=== PATIENT | female | born 1980 | race African-American/Black ===

== ENCOUNTER 2023-05-11 22:42 | Emergency (ER) | payer SELFPAY ==
[~2023-05-11] VITALS: Ht 170.2 cm; Wt 146.0 kg
[2023-05-11 22:50] VITALS: TEMP 97.7; O2SAT 100
[2023-05-11] MEDS ORDERED: CEFTRIAXONE 1GM/50ML 50 ML IV ONE (23:00)
[2023-05-11] MEDS ORDERED: SODIUM CHLORIDE 0.9% 1000ML BAG (SEPSIS BOLUS) IV ONE (23:00)
[2023-05-12 00:20] LABS: BASOPHILS % 0.5 % (0.0-2.0); EOSINOPHILS % 4.6 % (0.0-5.0); HEMATOCRIT. 37.8 % (36.0-48.0); LYMPHOCYTES % 35.1 % (20.0-50.0); MEAN CORPUSCULAR HEMOGLOBIN 27.2 pg (28.0-32.0); MEAN CORPUSCULAR HGB CONC 31.8 g/dL (31.0-37.0); MEAN CORPUSCULAR VOLUME 85.5 fL (81.0-99.0); MEAN PLATELET VOLUME 8.7 fl (7.4-10.4); MONOCYTES % 8.6 % (2.0-8.0); NEUTROPHILS % 51.2 % (40.0-76.0); PLATELET 338 x1000/uL (130-400); RED BLOOD CELL COUNT 4.43 mill/uL (4.2-5.4); RED CELL DISTRIBUTION WIDTH 13.7 % (11.6-14.6); WHITE BLOOD COUNT 8.6 x1000/uL (4.5-11.0)
[2023-05-12 00:30] LABS: PROTHROMBIN TIME 10.8 sec (9.6-11.0)
[2023-05-12 00:43] LABS: LACTIC ACID 3.6 mmol/L (0.4-2.0)
[2023-05-12 00:51] LABS: HCG SCREEN NEGATIVE
[2023-05-12 01:10] LABS: ALANINE AMINOTRANSFERASE 63 IU/L (10-49); ALBUMIN 4.6 g/dL (3.2-4.8); ASPARTATE AMINOTRANSFERASE 49 IU/L (<34); BILIRUBIN TOTAL 0.3 mg/dL (0.1-1.0); CALCIUM 8.9 mg/dL (8.7-10.4); CARBON DIOXIDE 32 mEq/L (21-32); CHLORIDE 96 mEq/L (98-107); CREATININE 1.1 mg/dL (0.6-1.0); POTASSIUM 4.1 mEq/L (3.5-5.1); PROTEIN TOTAL 8.1 g/dL (6.0-8.3); SODIUM 134 mEq/L (136-145); TROPONIN I HIGH SENSITIVITY 13 ng/L (3.0-34); UREA NITROGEN BLOOD 14 mg/dL (9-23)
[2023-05-12 01:12] LABS: ETHANOL BLOOD < 10 mg/dL (<10)
[2023-05-12 01:15] LABS: GLUCOSE 463 mg/dL (70-105)
[2023-05-12 01:32] LABS: BETA HYDROXYBUTYRATE 0.2 mMol/L (0.0-0.3)
[2023-05-12] MEDS: METHYLPREDNISOLONE SOD SUCC 125MG/2ML (ACT-O-VIAL) IV STA (02:20)
[2023-05-12] MEDS: METHYLPREDNISOLONE SOD SUCC 125MG/2ML (ACT-O-VIAL) IV NR (02:20)
[2023-05-12] MEDS: CEFTRIAXONE 1GM/50ML 50 ML IV NR (02:20)
[2023-05-12] MEDS: IOHEXOL-350 100 ML BOTTLE ONE (03:48)
[2023-05-12 04:57] LABS: CLARITY URINE CLEAR (CLEAR); COLOR URINE YELLOW (YELLOW); GLUCOSE URINE 3+ (NEGATIVE); KETONES URINE NEGATIVE (NEGATIVE); LEUKOCYTE ESTERASE URINE NEGATIVE (NEGATIVE); NITRITE URINE NEGATIVE (NEGATIVE); OCCULT BLOOD URINE NEGATIVE (NEGATIVE); PH URINE 5.5 (4.5-8.0); PROTEIN URINE NEGATIVE (NEGATIVE); SPECIFIC GRAVITY URINE 1.042 (1.005-1.030); UROBILINOGEN URINE 0.2 E.U./dL (0.2-1.0)
[2023-05-12 05:21] LABS: *AMPHETAMINES SCREEN URINE NEGATIVE (NEGATIVE); *BARBITURATES SCREEN URINE NEGATIVE (NEGATIVE); *BENZODIAZEPINES SCREEN URINE NEGATIVE (NEGATIVE); *COCAINE SCREEN URINE NEGATIVE (NEGATIVE); CANNABINOID URINE SCREEN NEGATIVE (NEGATIVE); ECSTASY MDMA SCREEN URINE NEGATIVE (NEGATIVE); METHADONE URINE SCREEN Neg (NEGATIVE); OPIATES URINE SCREEN NEGATIVE (NEGATIVE); PHENCYCLIDINE URINE SCREEN NEGATIVE (NEGATIVE)
[2023-05-12 05:56] LABS: WBC URINE 0-2 /hpf (0-2)
[2023-05-12 05:57] LABS: BACTERIA URINE NONE SEEN; RBC URINE NONE SEEN /hpf (0-2); SQUAMOUS EPITHELIAL CELL URINE NONE SEEN /lpf (RARE/1+)
[2023-05-12 06:00] VITALS: BP 157/89; PULSE 84; RESP 18
[2023-05-13] MEDS ORDERED: IOHEXOL-350 100 ML BOTTLE ONE (14:17)
== END 2023-05-12 06:40 | disposition home or self-care (01) ==
LOC: ER 22:42
DX: R41.82 Altered mental status, unspecified (principal); T50.905A Adverse effect of unspecified drugs, medicaments and biological substances, initial encounter; E11.65 Type 2 diabetes mellitus with hyperglycemia; F41.9 Anxiety disorder, unspecified; E11.9 Type 2 diabetes mellitus without complications; I10 Essential (primary) hypertension; Y92.89 Other specified places as the place of occurrence of the external cause
CPT/HCPCS: 80053; 82010; 80320; 82962; 84703; 83880; 83605 ×2; 83690; 85025; 85610; 87040; 84484; 36415; 84145; 71045; 70450; 93005; 36569; 99291; 80305; 81003; 87086; 70496; 70498; 96365; 96375; J7030; Q9967; J0696; J2930; Z7610 ×2; 36556; G0480